=== PATIENT | female | born 1965 | race Caucasian/White ===

== ENCOUNTER 2018-11-01 12:09 | Emergency (ER) | payer BC, SELFPAY ==
[2018-11-01 12:12] VITALS: BP 164/84; PULSE 78; RESP 14; TEMP 36.4; O2SAT 98; BMI 25.9
[2018-11-01] MEDS: diphenhydrAMINE 25 MG TABLET 50 MG PO (12:23)
--- NOTE | 2018-11-01 14:38 | ED.ALLEREA ---
HPI - Allergic Reaction General Chief complaint: Allergic Reaction Stated complaint: ALLERGIC REACTION TO SOMETHING Time Seen by Provider: 11/01/18 14:30 Source: patient Mode of arrival: ambulatory Limitations: no limitations History of Present Illness HPI narrative: This is a 52-year-old female who comes in with complaint of swelling of her upper lip. Patient states that it started earlier today. It started after she was drinking coffee which she states she drinks every single day. She denies any other contacts. She states that on Sunday she had some Chex Mix which she had nuts in it and she broke out and does severe hives she took Benadryl and improved week before that she had some silver not also and had symptoms again. Patient had hives both times. Patient states that the swelling was a lot worse Um of her lip and face but it has resolved. She had Benadryl while in the waiting room and still present but better. She denies any in oropharynx, tongue for tightness of the throat. She denies any weakness or tightness of her chest she denies any nausea vomiting or GI symptoms. Patient has several allergies including cantaloupe, raspberries but did not have any awareness of a nut allergy. We discussed I would be important for her to keep food diary as she may have had exposures that she was not aware. Also asked her to check her copies to see if it has made any facility with the nuts. Related Data Home Medications Medication Instructions Recorded Confirmed cetirizine 10 mg disintegrating 10 mg PO DAILY 02/27/18 11/01/18 tablet albuterol sulfate [ProAir HFA] 2 puff INHALATION Q4H PRN 11/01/18 11/01/18 Previous Rx's Medication Instructions Recorded sertraline 100 mg tablet 200 mg PO DAILY #180 tab 07/10/18 fluticasone 1 spray INTRANASAL BID #16 gm 08/15/18 fluticasone [Flovent HFA] 1 puff INH BID #1 inh 08/15/18 salmeterol 50 mcg/dose blister 1 inhalation INHALATION BID #60 10/02/18 powder for inhalation each prednisone 50 mg PO DAILY #5 tab 11/01/18 Allergies Allergy/AdvReac Type Severity Reaction Status Date / Time bee venom protein (honey bee) Allergy Severe Anaphylaxis Verified 11/01/18 12:15 amoxicillin [AMOXICILLIN] Allergy Intermediate RASH/HIVES Verified 11/01/18 12:15 Penicillins [PENICILLINS] Allergy Intermediate RASH/HIVES Verified 11/01/18 12:15 Review of Systems Review of Systems All systems reviewed & are unremarkable except as noted in HPI and below ENT Ears, Nose, Mouth, and Throat: Reports as per HPI, Denies change in voice, Denies hoarseness, Reports lip swelling, Denies nasal congestion, Denies throat swelling and Denies tongue swelling Cardiovascular Denies chest pain and Denies dyspnea Respiratory Denies chest congestion, Denies cough, Denies dyspnea, Denies stridor and Denies wheezing Gastrointestinal Gastrointestinal: Denies abdominal pain, Denies diarrhea, Denies nausea and Denies vomiting Allergic/Immunologic Reports lip swelling, Denies throat swelling, Denies tongue swelling and Denies wheezing [facility] Medical History ADHD (Chronic ~2009) Abnormal Pap smear of cervix (Chronic ~1989) Asthma (Chronic ~2004) Foot pain (Chronic ~2014) Fracture (Chronic ~2012) Hay fever (Chronic) Chicken pox (Resolved) Mumps (Resolved) Surgical History Status post delivery (~1991) Social History marital status: household members: spouse lives independently: Yes pets and animals: Yes (2 dogs) education level: college leisure activities: reading and other other: Gardening seatbelt use: always Smoking Status: Former smoker substance use type: does not use well-balanced diet: daily or most days daily servings fruits/ve-4 caffeine: Yes (1-2 caffeine drinks per day) eating out: 1-3 times/week frequency: 1-2 times per week duration: 30-45 minutes/day Exam Narrative Exam Narrative: GEN: well nourished, well appearing female, alert and oriented x 3, patient appears to be in mild distress. HEENT: Atraumatic, pupils are equal round reactive to light, extraocular movements are intact, nares are clear, TMs are clear with no fluid, there is no conjunctival pallor. Throat is clear without any exudates, erythema, tonsillar enlargement or uvular deviation, patient has swelling of her upper lip, involvement of the tongue, air or air oral airway, lower lip or rest of the face. HEART: Regular rate and rhythm without murmur, clicks, rubs. No carotid bruits, pulses are equal in upper and lower extremities LUNGS:Lungs clear to auscultation, no wheezes, rales, crackles, chest moves symmetrically ABD:bowel sounds normal, soft, non-tender, no guarding, rebound, rigidity, no masses noted, no hepatosplenomegaly MSCL: Non-tender, no muscle atrophy, muscles strength 5/5 upper and lower extremities, full range of motion, normal gait NEURO:CN 2-12 intact, sensation normal Initial Vital Signs Initial Vital Signs: Vital Signs Temperature 97.6 F 11/01/18 12:12 Pulse Rate 78 11/01/18 12:12 Respiratory Rate 14 11/01/18 12:12 Blood Pressure 164/84 H 11/01/18 12:12 Pulse Oximetry 98 11/01/18 12:12 Course Orders Ordered: Discontinued Medications Diphenhydramine HCl (Benadryl) 50 mg PO NOW ONE Stop: 11/01/18 12:20 Last Admin: 11/01/18 12:23 Dose: 50 mg Prednisone (Deltasone) 60 mg PO NOW ONE Stop: 11/01/18 14:39 Last Admin: 11/01/18 15:02 Dose: 60 mg Vital Signs - 8 hr 11/01/18 12:12 11/01/18 14:58 11/01/18 15:18 Temperature 97.6 F Pulse Rate 78 75 75 Respiratory Rate 14 14 17 Blood Pressure 164/84 H 128/75 Blood Pressure [Right Arm] 128/78 Pulse Oximetry 98 97 97 MDM - Allergic Reaction MDM Narrative Medical decision making narrative: Discussed with patient we will go ahead and short start her on a course of steroids Um as she has had multiple episodes in the last couple weeks it is unclear the exact source although it sounds suspiciously like a nut allergy. Discussed with patient about keeping a food diary. She is going to follow up with primary care to see about referral to allergy. She has an EpiPen but it is about 5 years old so given her a written prescription for a 2 pack epi pen. Patient also discussed she can do ranitidine twice daily while she continues to have symptoms and continue Benadryl until her symptoms have resolved. Discharge Plan Departure Patient Disposition: Home Clinical Impression: Allergic reaction Discharge Date/Time: 11/01/18 15:20 Interventions: ED Discharge Assessment Last Done: 11/01/18 15:18 Instructions: DI for General Allergic Reactions Activity Restrictions/Additional Instructions: Follow up with primary care physician in the next 1-2 weeks for recheck. Continue prednisone daily until gone. Prescription sent to your pharmacy. You may take ranitidine or Zantac 150 mg twice daily until resolution of symptoms. Continue Benadryl 1-2 tablets every 6-8 hours as needed for symptoms. Use EpiPen for anaphylactic changes, narrowing,, tongue, lips, difficulty breathing. Prescription is paper rx. Return to the emergency department for any new or concerning symptoms, chest pain, passing out, swelling of your mouth, tongue, lips, airway or other severe hives. Prescriptions: New prednisone 50 mg tablet 50 mg PO DAILY Qty: 5 RF: 0 Continue fluticasone 50 mcg/actuation spray,suspension 1 spray Intranasal BID Qty: 16 RF: 5 fluticasone [Flovent HFA] 110 mcg/actuation HFA aerosol inhaler 1 puff INH BID Qty: 1 RF: 3 salmeterol [Serevent Diskus] 50 mcg/dose blister with device 1 inhalation INHALATION BID Qty: 60 RF: 6 cetirizine [Zyrtec] 10 mg tablet,disintegrating 10 mg PO DAILY RF: 0 sertraline 100 mg tablet 200 mg PO DAILY Qty: 180 RF: 1 No Action albuterol sulfate [ProAir HFA] 90 mcg/actuation HFA aerosol inhaler 2 puff Inhalation Q4H PRN (Reason: Shortness Of Breath) RF: 0 Referrals: Yuliet Hicks DO [Primary Care Provider] -
[2018-11-01 14:58] VITALS: BP 128/78; PULSE 75; RESP 14; O2SAT 97
[2018-11-01] MEDS: predniSONE 20 MG TABLET 60 MG PO (15:02)
--- NOTE | 2018-11-01 15:08 | PC.NURSE ---
Pt. resting comfortably without need. no SOB or discomfort reported. awaiting D/C denies need.
[2018-11-01 15:18] VITALS: BP 128/75; PULSE 75; RESP 17; O2SAT 97
== END 2018-11-01 15:20 | disposition home or self-care (01) ==
PROVIDERS: Emergency Provider Emergency Medicine; PCP Family Medicine
DX: T78.40XA Allergy, unspecified, initial encounter (principal)
CPT/HCPCS: 99282; 99283

== ENCOUNTER → 2021-04-01 10:44 | Outpatient (CLI) | payer BC, SELFPAY ==
[2021-04-01 12:11] LABS: Add Manual Diff / Slide Review NO; Basophils Absolute Auto 0 /uL (0-100); Basophils Percent Auto 0.7 % (0-2); Eosinophils Absolute Auto 200 /uL (0-450); Eosinophils Percent Auto 2.9 % (2-4); Hematocrit 42.1 % (36-46); Hemoglobin 14.1 g/dL (12.0-16.0); Lymphocytes Absolute Auto 1500 /uL (1100-4500); Lymphocytes Percent Auto 24.1 % (25-40); Mean Corpuscular HGB Conc 33.6 % (30-36); Mean Corpuscular Hemoglobin 29.5 PG (26-34); Mean Corpuscular Volume 87.9 fL (80-100); Monocytes Absolute Auto 400 /uL (0-900); Monocytes Percent Auto 7.1 % (3-14); Neutrophils Absolute Auto 3900 /uL (1500-7000); Neutrophils Percent Auto 65.2 % (50-75); Platelet Count 243 X10^3/uL (150-400); Red Blood Cell Count 4.79 X10^6/uL (4.0-5.2); Red Cell Distribution Width 13.6 % (11.6-14.8)
[2021-04-01 12:17] LABS: Alanine Aminotransferase 66 IU/L (<35); Albumin 4.7 g/dL (3.5-5.0); Albumin Globulin Ratio 1.4 (1.0-2.8); Alkaline Phosphatase 81 U/L (38-126); Aspartate Aminotransferase 43 IU/L (14-36); BUN Creatinine Ratio 28.3 (6-22); Bilirubin Total 0.4 mg/dL (0.2-1.3); Blood Urea Nitrogen 17 mg/dL (7-17); Calcium 9.9 mg/dL (8.4-10.2); Carbon Dioxide 20 mmol/L (22-32); Chloride 106 mmol/L (98-107); Cholesterol 228 mg/dL (140-199); Estimated Glomerular Filt Rate > 60.0 mL/min (>60); Globulin 3.4 g/dL (1.7-4.1); Glucose 118 mg/dL (70-100); HDL Cholesterol 44 mg/dL (40-60); HEMOLYSIS 34 (0-50); LDL Cholesterol Calculated 109 mg/dL (<100); Potassium 4.1 mmol/L (3.4-5.1); Sodium 137 mmol/L (137-145); Total Protein 8.1 g/dL (6.3-8.2); Triglycerides 374 mg/dL (35-150)
== END ==
PROVIDERS: PCP Family Medicine; Referring Provider Family Medicine; Visit Provider Family Medicine
DX: Z13.1 Encounter for screening for diabetes mellitus (principal); Z13.220 Encounter for screening for lipoid disorders
CPT/HCPCS: 36415; 80053; 80061; 85025

== ENCOUNTER → 2021-04-08 10:50 | Outpatient (CLI) | payer BC, SELFPAY ==
[2021-04-08 12:19] LABS: Hemoglobin A1C% w Est Avg Glu 5.9 % (4.0-6.0)
== END ==
PROVIDERS: PCP Family Medicine; Referring Provider Family Medicine; Visit Provider Family Medicine
DX: R73.9 Hyperglycemia, unspecified (principal)
CPT/HCPCS: 36415; 83036

== ENCOUNTER → 2021-08-10 13:02 | Outpatient (CLI) | payer BC, SELFPAY ==
[2021-08-10 15:44] LABS: Hemoglobin A1C% w Est Avg Glu 5.6 % (4.0-6.0)
[2021-08-10 16:00] LABS: Alanine Aminotransferase 27 IU/L (<35); Albumin 4.6 g/dL (3.5-5.0); Albumin Globulin Ratio 1.5 (1.0-2.8); Alkaline Phosphatase 98 U/L (38-126); Aspartate Aminotransferase 22 IU/L (14-36); BUN Creatinine Ratio 40.4 (6-22); Bilirubin Total 0.4 mg/dL (0.2-1.3); Blood Urea Nitrogen 23 mg/dL (7-17); Calcium 9.4 mg/dL (8.4-10.2); Carbon Dioxide 25 mmol/L (22-32); Chloride 104 mmol/L (98-107); Estimated Glomerular Filt Rate > 60.0 mL/min (>60); Globulin 3.1 g/dL (1.7-4.1); Glucose 102 mg/dL (70-100); HEMOLYSIS < 15 (0-50); Potassium 3.9 mmol/L (3.4-5.1); Sodium 140 mmol/L (137-145); Total Protein 7.7 g/dL (6.3-8.2)
== END ==
PROVIDERS: PCP Family Medicine; Referring Provider Family Medicine; Visit Provider Family Medicine
DX: R73.03 Prediabetes (principal); R74.01 Elevation of levels of liver transaminase levels
CPT/HCPCS: 36415; 80053; 83036

== ENCOUNTER → 2021-08-10 13:11 | Outpatient (CLI) | payer BC, SELFPAY ==
--- NOTE | 2021-08-10 13:15 | DI.US.S_ITS ---
LIMITED ULTRASOUND OF LEFT BREAST: 08/10/2021 CLINICAL: Palpable left breast lump. Comparison is made to exams dated: 08/10/2021 mammogram - [facility] and 07/22/2014 mammogram - [facility] [place]. Color flow and real-time ultrasound of the left breast 10 o'clock region were performed. Valera scale images of the real-time examination were reviewed. There is a complex cyst in the left breast at 10 o'clock posterior depth. This is immediately subjacent to the skin and there is extensive contact with the dermal undersurface. In addition, there is a tract extending from the lesion into the superficial dermis seen on multiple cine images. IMPRESSION: BENIGN There is no sonographic evidence of malignancy. The complex cyst in the left breast is consistent with a sebaceous cyst and is benign. A cyst aspiration for symptomatic relief is recommended given the reported associated pain/discomfort. A 1 year screening mammogram is recommended. This exam was interpreted at Station ID: [id number]. Electronically Signed By: Randy De La Garza M.D. jr/:08/10/2021 16:04:44 letter sent: Normal Exam Ultrasound BI-RADS: 2 Benign
--- NOTE | 2021-08-10 13:15 | DI.MG.S_ITS ---
BILATERAL DIGITAL DIAGNOSTIC MAMMOGRAM 3D/2D: 08/10/2021 CLINICAL: Breast lump. Comparison is made to exam dated: 07/22/2014 mammogram - [facility]. There are scattered fibroglandular elements in both breasts. There is an asymmetry in the left breast posterior depth superior region seen on the mediolateral oblique view only. This correlates as palpated. No other significant masses, calcifications, or other findings are seen in either breast. IMPRESSION: INCOMPLETE: NEEDS ADDITIONAL IMAGING EVALUATION The asymmetry in the left breast is indeterminate. An ultrasound is recommended. This exam was interpreted at Station ID: [id number]. NOTE: For mammograms, a report in lay terms will be sent to the patient. Approximately 15% of breast malignancies will not be visualized mammographically. In the management of a palpable breast mass, a negative mammogram must not discourage biopsy of a clinically suspicious lesion. Electronically Signed By: Randy De La Garza M.D., jr/court:08/10/2021 15:26:10 ACR BI-RADS Category 0: Incomplete [id number]
== END ==
PROVIDERS: PCP Family Medicine; Referring Provider Family Medicine; Visit Provider Family Medicine
DX: N60.02 Solitary cyst of left breast (principal); R92.8 Other abnormal and inconclusive findings on diagnostic imaging of breast
CPT/HCPCS: 76642; 77066; G0279